=== PATIENT | female | born 1995 | race Caucasian/White ===

== ENCOUNTER 2018-02-02 02:14 | Emergency (ER) | END 2018-02-02 05:43 | disposition home or self-care (01) ==

== ENCOUNTER 2018-03-15 05:08 | Emergency (ER) | payer OTHER ==
[~2018-03-15] VITALS: Wt 93.7 kg
[~2018-03-15 05:08] MED LIST: BEN25 PO; CLIN300C10; EPIN0.3P4 INJ; HYDR-1666; PRED20TA PO
[2018-03-15 05:10] VITALS: BP 134/82; PULSE 117; RESP 20
[2018-03-15] MEDS ORDERED: PENI500T PO (05:27)
[2018-03-15] MEDS ORDERED: HYDR-4011 PO (05:27)
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
== END 2018-03-15 05:35 | disposition home or self-care (01) ==
LOC: FTE 05:08
DX: J02.0 Streptococcal pharyngitis (principal); F17.210 Nicotine dependence, cigarettes, uncomplicated
CPT/HCPCS: 99283

== ENCOUNTER 2018-10-18 16:23 | Emergency (ER) | payer SELFPAY ==
[~2018-10-18] VITALS: Ht 152.4 cm; Wt 92.5 kg
[~2018-10-18 16:23] MED LIST changes: +HYDR-4011 PO; +IBUP-1542 PO; +ONDA8TAB14 PO; +PENI500T PO
[2018-10-18 16:26] VITALS: BP 134/55; PULSE 74; RESP 18; Ht 152.4 cm; Wt 92.5 kg
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
== END 2018-10-18 18:17 | disposition home or self-care (01) ==
LOC: FTE 16:23 → E/R 18:17
DX: R51 Headache (principal)
CPT/HCPCS: 70450